=== PATIENT | male | born 1955 | race Caucasian/White ===

== ENCOUNTER 2025-01-16 22:11 | Inpatient (IN) | payer MEDICARE, OTHER ==
[~2025-01-16] VITALS: Ht 172.7 cm; Wt 66.7 kg
[2025-01-16] MEDS ORDERED: QUET50TA PO (23:09)
[2025-01-16] MEDS ORDERED: LEVO50TA8 PO (23:09)
[2025-01-16] MEDS ORDERED: DIVA500T54 PO (23:09)
[2025-01-16] MEDS ORDERED: APIX2.5T PO (23:09)
[2025-01-16] MEDS ORDERED: AZITHROMYCIN 500 MG in IV D5W 250 ML IV ONE (23:30)
[2025-01-16] MEDS ORDERED: CEFTRIAXONE 1GM BAG (ER ONLY) 50 ML IV ONE (23:53)
[2025-01-16] MEDS ORDERED: AZITHROMYCIN 500 MG VIAL ONE (23:53)
[2025-01-17] VITALS (7 sets, daily range): BP systolic 91–110; BP diastolic 57–71; TEMP 97.5–99.3; O2SAT 95–98
[2025-01-17] MEDS: IV NS 0.9% 1,000 ML BAG IV ONE (00:10)
[2025-01-17] MEDS: CEFTRIAXONE 1 G in IV D5W 50 ML IV ONE (00:10)
[2025-01-17] MEDS: ACETAMINOPHEN ES 500 MG TABLET PO ONE (00:38)
[2025-01-17] MEDS ORDERED: ACETAMINOPHEN 650 MG/SUPP.RECT RC ONE (00:40)
[2025-01-17] MEDS: ACETAMINOPHEN 650 MG/SUPP.RECT RC ONE (00:49)
[2025-01-17] MEDS: AZITHROMYCIN 500 MG in IV D5W 250 ML IV ONE (00:49)
[2025-01-17 01:22] LABS: PLATELET COUNT (AUTO) 162 K/uL (150-450); RED BLOOD CELL COUNT(AUTO) 4.21 MIL/uL (4.5-6.0); RED CELL DISTRIBUTION WIDTH 17.5 % (11.5-15.0); WHITE BLOOD COUNT (AUTO) 6.4 K/uL (4.3-11.0)
[2025-01-17 01:34] LABS: ASPARTATE AMINOTRANSFERASE 10 U/L (15-37); CALCIUM, SERUM 7.9 mg/dL (8.5-10.1); CREATININE 1.1 mg/dL (0.6-1.3); SODIUM SERUM 128 mmol/L (136-145); TOTAL PROTEIN, SERUM 7.0 g/dL (6.4-8.2); UREA NITROGEN, BLOOD 18 mg/dL (7-18)
[2025-01-17 01:44] LABS: LACTIC ACID 3.3 mmol/L (0.4-2.0)
[2025-01-17] MEDS ORDERED: Z GUARD REMEDY 4 OZ OINT TP PRN (02:30)
[2025-01-17] MEDS ORDERED: DOSING PER PHARMACY-CEFEPIME IVPB XX PRN (02:30)
[2025-01-17] MEDS ORDERED: DOSING PER PHARMACY-VANCOMYCIN IV XX PRN (02:30)
[2025-01-17] MEDS ORDERED: ONDANSETRON HCL/PF 4 MG/2 ML VIAL IVP PRN (02:30)
[2025-01-17] MEDS ORDERED: REMDESIVIR (CHARGED) 200 MG, *LOADING DOSE 1 EA in IV NS 0.9% 210 ML IV ONE (02:30)
[2025-01-17] MEDS ORDERED: ACETAMINOPHEN 650 MG/SUPP.RECT RC PRN (02:30)
[2025-01-17] MEDS: IV NS 0.9% 1,000 ML IV SCH (02:39)
[2025-01-17] MEDS ORDERED: VANCOMYCIN 1 GM /D5W 250 ML PB IV ONE (04:04)
[2025-01-17] MEDS ORDERED: CEFEPIME 1 GM VIAL ONE (04:08)
[2025-01-17] MEDS: VANCOMYCIN 1 GM in IV D5W 250ml IV ONE (04:22)
[2025-01-17] MEDS: IV NS 0.9% 500 ML IV ONE (04:26)
[2025-01-17 04:30] LABS: ABG BASE EXCESS 1.1 mmol/L (-2.0-3.0); ABG OXYGEN SATURATION 98.4 % (94.0-98.0); ABG PCO2 28.1 mmHg (35.0-48.0); ABG PH 7.529 (7.350-7.450); ABG PO2 118.8 mmHg (83.0-108.0); ABG TOTAL HEMOGLOBIN 12.4 G/dL (13.5-17.5); FLOW, BLOOD GAS 3.00 L/min (0.00-30.00); FRACTIONATED INSPIRED OXYGEN 32.0 %; SITE, ABG LEFT RADIAL
[2025-01-17] MEDS: CEFEPIME 2 GM in IV D5W 100 ML IV ONE (04:40)
[2025-01-17 04:45] LABS: LACTIC ACID REFLEX 3.1 mmol/L (0.4-1.9)
[2025-01-17 07:40] LABS: APPEARANCE,URINE CLEAR (CLEAR); BLOOD, URINE 1+ Ery/uL (NEGATIVE); LEUKOCYTE ESTERASE ,URINE NEGATIVE (NEGATIVE); NITRITE, URINE NEGATIVE (NEGATIVE); UGLUCOSE NEGATIVE (NEGATIVE)
[2025-01-17 08:05] LABS: ADD URINE CULTURE NO; SQUAMOUS EPITHELIAL CELL,UR 0-2 /HPF (None Seen)
[2025-01-17] MEDS: HEPARIN SODIUM, PORCINE 5000 UNITS/1 ML VIAL SQ SCH (08:11)
[2025-01-17] MEDS: dexaMETHasone SOD PHOSPHATE 10 MG/ML VIAL IV SCH (08:45)
[2025-01-17 10:47] LABS: CALCIUM, SERUM 7.7 mg/dL (8.5-10.1); CREATININE 0.8 mg/dL (0.6-1.3); SODIUM SERUM 133.0 mmol/L (136-145); UREA NITROGEN, BLOOD 15.0 mg/dL (7-18)
[2025-01-17] MEDS: REMDESIVIR (CHARGED) 200 MG, *LOADING DOSE 1 EA in IV NS 0.9% 210 ML IV ONE (12:14)
[2025-01-17] MEDS: CEFEPIME 2 GM in IV D5W 100 ML IV SCH (14:07)
[2025-01-17] MEDS: VANCOMYCIN 1 GM in IV D5W 250ml IV SCH (15:37)
[2025-01-17] MEDS: DOXYCYCLINE 100 MG in IV D5W 100 ML IV SCH (21:05)
[2025-01-18] VITALS: BP 106/74; TEMP 98.2; O2SAT 98
[2025-01-18 00:20] LABS: CALCIUM, SERUM 7.8 mg/dL (8.5-10.1); CREATININE 0.8 mg/dL (0.6-1.3); IRON, SERUM 16 ug/dl (50-175); SODIUM SERUM 133.0 mmol/L (136-145); UREA NITROGEN, BLOOD 16.0 mg/dL (7-18)
[2025-01-18 04:00] VITALS: BP 98/63; TEMP 98.6; O2SAT 96
[2025-01-18 07:08] LABS: PLATELET COUNT (AUTO) 172 K/uL (150-450); RED BLOOD CELL COUNT(AUTO) 3.37 MIL/uL (4.5-6.0); RED CELL DISTRIBUTION WIDTH 16.9 % (11.5-15.0); WHITE BLOOD COUNT (AUTO) 7.0 K/uL (4.3-11.0)
[2025-01-18 07:22] LABS: INR 1.2 (0.91-1.10)
[2025-01-18 07:46] LABS: ASPARTATE AMINOTRANSFERASE 13.0 U/L (15-37); CALCIUM, SERUM 7.7 mg/dL (8.5-10.1); CREATININE 0.7 mg/dL (0.6-1.3); NT-PRO BNP 273.0 pg/mL (0-125); PHOSPHORUS 3.0 mg/dL (2.5-4.9); SODIUM SERUM 135.0 mmol/L (136-145); TOTAL PROTEIN, SERUM 5.7 g/dL (6.4-8.2); UREA NITROGEN, BLOOD 18.0 mg/dL (7-18)
[2025-01-18 08:00] VITALS: BP_SYST 86; BP_SYST 92; BP_DIAS 56; BP_DIAS 60; TEMP 98.2; O2SAT 95
[2025-01-18 10:12] LABS: BAND % (MANUAL) 2 % (0.0-5.0); BASOPHILS % (MANUAL) 0 % (0.0-2.0); EOSINOPHILS % (MANUAL) 2 % (0-4); LYMPHOCYTES % (MANUAL) 5 % (16-48); MONOCYTES % (MANUAL) 16 % (0-11.0); NEUTROPHILS % (MANUAL) 75 (42-76)
[2025-01-18 10:13] LABS: PLATELET ESTIMATE ADEQUATE
[2025-01-18] MEDS: POTASSIUM CL. PREMIX PERIPHER. 50 ML IV SCH (10:13)
[2025-01-18] MEDS: REMDESIVIR (CHARGED) 100 MG in IV NS 0.9% 80 ML IV SCH (11:56)
[2025-01-18 12:10] VITALS: BP 91/56; TEMP 99.1; O2SAT 94
[2025-01-18 16:10] VITALS: BP 102/65; TEMP 99; O2SAT 95
[2025-01-18 20:00] VITALS: BP 111/80; TEMP 98.6; O2SAT 94
[2025-01-19] VITALS: BP 107/73; TEMP 97.3; O2SAT 98
[2025-01-19 04:00] VITALS: BP 112/82; TEMP 97.6; O2SAT 99
[2025-01-19 05:07] LABS: CARCINOEMBRYONIC ANTIGEN (CEA) 1.6 ng/mL (0.0-4.7); FOLIC ACID 12.5 ng/mL (>3.0)
[2025-01-19 06:07] LABS: IMMUNOGLOBULIN A, SERUM 41 mg/dL (61-437); IMMUNOGLOBULIN M, SERUM 14 mg/dL (20-172)
[2025-01-19 08:33] VITALS: BP 118/84; TEMP 97.7; O2SAT 98
[2025-01-19 12:00] VITALS: BP 106/72; TEMP 97.7; O2SAT 96
[2025-01-19 13:29] LABS: ASPARTATE AMINOTRANSFERASE 13.0 U/L (15-37); CALCIUM, SERUM 7.9 mg/dL (8.5-10.1); CREATININE 0.8 mg/dL (0.6-1.3); SODIUM SERUM 135.0 mmol/L (136-145); TOTAL PROTEIN, SERUM 6.6 g/dL (6.4-8.2); UREA NITROGEN, BLOOD 23.0 mg/dL (7-18)
[2025-01-19 13:33] LABS: PLATELET COUNT (AUTO) 241 K/uL (150-450); RED BLOOD CELL COUNT(AUTO) 3.54 MIL/uL (4.5-6.0); RED CELL DISTRIBUTION WIDTH 17.0 % (11.5-15.0); WHITE BLOOD COUNT (AUTO) 8.1 K/uL (4.3-11.0)
[2025-01-19 15:11] LABS: INR 1.18 (0.91-1.10)
[2025-01-19 16:11] VITALS: BP 102/68; TEMP 97.5; O2SAT 97
[2025-01-19 20:00] VITALS: BP 120/84; TEMP 97.8; O2SAT 95
[2025-01-19 20:36] LABS: LYMPHOCYTES % (MANUAL) 4 % (16-48); MONOCYTES % (MANUAL) 16 % (0-11.0); NEUTROPHILS % (MANUAL) 80 (42-76)
[2025-01-19 20:38] LABS: PLATELET ESTIMATE ADEQUATE
[2025-01-20] VITALS: BP 104/73; TEMP 97.8; O2SAT 95
[2025-01-20 04:00] VITALS: BP 98/57; TEMP 97.8; O2SAT 99
[2025-01-20 07:51] LABS: PLATELET COUNT (AUTO) 257 K/uL (150-450); RED BLOOD CELL COUNT(AUTO) 3.45 MIL/uL (4.5-6.0); RED CELL DISTRIBUTION WIDTH 17.4 % (11.5-15.0); WHITE BLOOD COUNT (AUTO) 7.2 K/uL (4.3-11.0)
[2025-01-20 08:00] VITALS: BP 99/71; TEMP 97; O2SAT 97
[2025-01-20 08:07] LABS: ASPARTATE AMINOTRANSFERASE 11.0 U/L (15-37); CALCIUM, SERUM 8.1 mg/dL (8.5-10.1); CREATININE 0.8 mg/dL (0.6-1.3); PHOSPHORUS 3.3 mg/dL (2.5-4.9); SODIUM SERUM 137.0 mmol/L (136-145); TOTAL PROTEIN, SERUM 6.0 g/dL (6.4-8.2); UREA NITROGEN, BLOOD 22.0 mg/dL (7-18)
[2025-01-20 09:17] LABS: INR 1.2 (0.91-1.10)
[2025-01-20] MEDS ORDERED: DEXA6TAB6 PO (10:24)
[2025-01-20] MEDS ORDERED: AMOX-430 PO (10:24)
[2025-01-20 12:00] VITALS: O2SAT 97
[2025-01-20 12:57] LABS: FIBRINOGEN ACTIVITY 560.0 Mg/dL (213-485)
[2025-01-20 14:05] LABS: LYMPHOCYTES % (MANUAL) 12 % (16-48); MONOCYTES % (MANUAL) 26 % (0-11.0); NEUTROPHILS % (MANUAL) 62 (42-76); PLATELET ESTIMATE ADEQUATE
[2025-01-20 16:00] VITALS: BP 113/81; TEMP 98; O2SAT 97
[2025-01-21 11:08] LABS: *SPE A/G RATIO 0.5 (0.7-1.7); *SPE ALBUMIN 1.8 g/dL (2.9-4.4); *SPE ALPHA-1-GLOBULIN 0.5 g/dL (0.0-0.4); *SPE ALPHA-2-GLOBULIN 0.8 g/dL (0.4-1.0); *SPE BETA GLOBULIN 0.9 g/dL (0.7-1.3); *SPE GLOBULIN, TOTAL 3.7 g/dL (2.2-3.9); *SPE M-SPIKE 1.4 g/dL (Not Observed); *SPE PROTEIN TOTAL 5.5 g/dL (6.0-8.5); *SPEGAMMA GLOBULIN 1.6 g/dL (0.4-1.8)
== END 2025-01-20 21:03 | DRG 871 ==
LOC: ER 22:15 → TELE1 01-17 02:00 → TELE-TD 01-17 03:45 → TELE1 01-19 08:09 → MEDSG1 01-20 09:32
PROVIDERS: ADMIT Registered Nurse Psychiatric/Mental Health; ATTEND Student in an Organized Health Care Education/Training Program
PROC: XW033E5 Introduction of Remdesivir Anti-infective into Peripheral Vein, Percutaneous Approach, New Technology Group 5 (ICD-10-PCS; principal; 2025-01-17)
DX: A41.89 Other specified sepsis (principal); E43 Unspecified severe protein-calorie malnutrition; J96.01 Acute respiratory failure with hypoxia; U07.1 COVID-19; J12.82 Pneumonia due to coronavirus disease 2019; J18.9 Pneumonia, unspecified organism; D84.9 Immunodeficiency, unspecified; E87.1 Hypo-osmolality and hyponatremia; F03.918 Unspecified dementia, unspecified severity, with other behavioral disturbance; D68.59 Other primary thrombophilia; C90.00 Multiple myeloma not having achieved remission; G93.49 Other encephalopathy; Z16.24 Resistance to multiple antibiotics; E87.4 Mixed disorder of acid-base balance; E86.0 Dehydration; Z85.118 Personal history of other malignant neoplasm of bronchus and lung; Z79.890 Hormone replacement therapy; Z79.01 Long term (current) use of anticoagulants; Z79.899 Other long term (current) drug therapy; D64.9 Anemia, unspecified; E83.51 Hypocalcemia; E88.09 Other disorders of plasma-protein metabolism, not elsewhere classified; R73.9 Hyperglycemia, unspecified; Z79.60 Long term (current) use of unspecified immunomodulators and immunosuppressants; R27.8 Other lack of coordination; Z78.9 Other specified health status; Y95 Nosocomial condition; R65.20 Severe sepsis without septic shock
CPT/HCPCS: 36415; 36600; 70450-TC; 71045-TC; 71250-TC; 80048-TC; 80053-TC; 80076-TC; 80202-TC; 81001; 82248-TC; 82378; 82607-TC; 82728-TC; 82784; 82803-TC; 83540-TC; 83605-TC; 83735-TC; 83880; 83935-TC; 84100-TC; 84155; 84165; 84300-TC; 84443-TC; 84550-TC; 85025-TC; 85027-TC; 85378-TC; 85385-TC; 85396; 85610-TC; 85730-TC; 86140-TC; 86334; 87040-TC; 87081-TC; 87086-TC; 87449; 87806; 92526; 92611-TC; 93970-TC; 97110-TC; 97116-TC; 97530-TC; A4216; A4223; G0378; J0456; J0692; J0696; J1100; J1644; J2048; J3373; J3480; J3490; J7030; J7040; J7050; J7060